=== PATIENT | female | born 1980 | race Caucasian/White ===

== ENCOUNTER → 2017-06-22 | Outpatient (CLI) | payer OTHER ==
[~2017-06-22] MED LIST: ALBUAER2 IN; DIPH1TAB98 PO; DOCU-94 PO; NAPR500T3 PO; NORE1TAB PO; ULT50HP PO
--- NOTE | 2017-06-22 11:23 | DIAGNOSTIC IMAGING REPORT ---
R LOWER EXT JOINT WITHOUT CLINICAL HISTORY: Z98.8910,M76.71,M79.671 trauma. Pain. TECHNIQUE: MRI multi axial acquisition COMPARISON STUDY: 10/08/2014 FINDINGS: Signal characteristics the osseous structures are unremarkable throughout. There is no significant bone marrow replacing process. All major ligamentous and tendinous structures are unremarkable. The ankle mortise is aligned anatomically. Articular services are intact. There are no osteochondral defects. Structures the mid foot are considered unremarkable. Bony alignment is within normal limits. The Achilles tendon is intact. IMPRESSION: Normal study The above report was generated using voice recognition software. It may contain grammatical, syntax or spelling errors. Electronically signed by: Reji Cohen M.D. 06/22/2017 11:22 AM Dictated Date/Time: 06/22/2017 11:17 AM
== END ==
LOC: C.MRI 09:52
PROVIDERS: ATTEND Orthopaedic Surgery Foot and Ankle Surgery
DX: Z98.890 Other specified postprocedural states (principal); M76.71 Peroneal tendinitis, right leg; M79.671 Pain in right foot; G90.521 Complex regional pain syndrome I of right lower limb